=== PATIENT | male | born 1930 | race Caucasian/White ===

== ENCOUNTER 2017-07-07 10:00 | Inpatient (IN) | payer OTHER ==
[~2017-07-07] VITALS: Ht 170.2 cm; Wt 68.9 kg
[2017-07-07] MEDS ORDERED: SYNTHROID175 MCG PO (10:52)
[2017-07-14] MEDS ORDERED: GABAPENTIN800 MG PO (10:54)
[2017-07-14] MEDS ORDERED: AMOX-CLAV 875-1 EACH PO (10:55)
[2017-07-14] MEDS ORDERED: DOCUSATE SODIU100 MG PO (10:55)
[2017-07-14] MEDS ORDERED: PERCOCET 5-3251 EACH PO (10:57)
[2017-07-14] MEDS ORDERED: CLONAZEPAM1 MG PO (10:57)
[2017-07-14] MEDS ORDERED: ENSURE ORIGINA237 ML PO (11:21)
== END 2017-07-14 14:32 | DRG 454 ==
LOC: O/R 07-13 04:55 → PED 07-13 04:55 → SURH 07-13 07:00 → PED 07-13 12:50
PROVIDERS: Orthopaedic Surgery Orthopaedic Surgery of the Spine
PROC: 0SG10A0 Fusion of 2 or more Lumbar Vertebral Joints with Interbody Fusion Device, Anterior Approach, Anterior Column, Open Approach (ICD-10-PCS; 2017-07-13)
PROC: 0ST20ZZ Resection of Lumbar Vertebral Disc, Open Approach (ICD-10-PCS; 2017-07-13)
PROC: 0SG10AJ Fusion of 2 or more Lumbar Vertebral Joints with Interbody Fusion Device, Posterior Approach, Anterior Column, Open Approach (ICD-10-PCS; 2017-07-13)
PROC: 07DS3ZZ Extraction of Vertebral Bone Marrow, Percutaneous Approach (ICD-10-PCS; 2017-07-13)
PROC: 0SG1071 Fusion of 2 or more Lumbar Vertebral Joints with Autologous Tissue Substitute, Posterior Approach, Posterior Column, Open Approach (ICD-10-PCS; principal; 2017-07-13 07:00)
DX: M43.16 Spondylolisthesis, lumbar region (principal); M47.16 Other spondylosis with myelopathy, lumbar region; M51.06 Intervertebral disc disorders with myelopathy, lumbar region; M48.061 Spinal stenosis, lumbar region without neurogenic claudication; E03.8 Other specified hypothyroidism